=== PATIENT | male | born 1995 | race Caucasian/White ===

== ENCOUNTER 2016-12-29 02:20 | Emergency (ER) | payer OTHER ==
--- NOTE | 2016-12-29 03:27 | ED ORDER SUMMARY ---
..... Patient: NAZ SMITH OrderSheet [facility] VisitID: [id number] [address] [place] [address] 21y, M Registration Date/Time: 12/29/2016 ORDER SHEET Weight: 77.1 kg (stated) Allergies: No Known Drug Allergy GENERAL ORDERS: MEDICATION ORDERS: Bactrim DS PO (Tablet 800-160 mg) 2 tabs (NOW) (03:26 12/29/2016 Karolina GIBSON) (3:48 Fabricio R.N.) IV FLUIDS: ORDER SHEET NOTES: [Electronically signed by Jagdeep Christensen R.N. (03:50 12/29/2016)] [Electronically signed by Miguel Ángel Johnson MD (00:25 01/02/2017)] [Electronically locked/signed by Jagdeep Christensen R.N. (03:50 12/29/2016)]
--- NOTE | 2016-12-29 03:27 | ED ORDER SUMMARY ---
..... Patient: NAZ SMITH OrderSheet [facility] VisitID: [id number] [address] [place] [address] 21y, M Registration Date/Time: 12/29/2016 ORDER SHEET Weight: 77.1 kg (stated) Allergies: No Known Drug Allergy GENERAL ORDERS: MEDICATION ORDERS: Bactrim DS PO (Tablet 800-160 mg) 2 tabs (NOW) (03:26 12/29/2016 Karolina GIBSON) (3:48 Fabricio R.N.) IV FLUIDS: ORDER SHEET NOTES: [Electronically signed by Jagdeep Christensen R.N. (03:50 12/29/2016)] [Electronically signed by Miguel Ángel Johnson MD (00:25 01/02/2017)] [Electronically locked/signed by Jagdeep Christensen R.N. (03:50 12/29/2016)]
--- NOTE | 2016-12-29 03:27 | ED CLINICAL REPORT ---
Clinical Report - Physicians/Mid Levels [facility] [address] [place] [address] 12/29/2016 2:21 [id number] Time Seen: 02:30 Dec 29 2016. Arrived- By private vehicle. Historian- patient. HISTORY OF PRESENT ILLNESS Chief Complaint: SKIN RASH and BOIL. This started about 2 weeks ago and is still present. It is described as painful. It has been located on the buttocks. No cause has been identified. Similar symptoms previously: Recent medical care: Not recently seen/assessed. REVIEW OF SYSTEMS No fever, chills, sore throat, cough or difficulty breathing. No hoarseness, lump in throat, enlarged lymph nodes, abdominal pain or nausea. No diarrhea, difficulty with urination or joint pain. All systems otherwise negative, except as recorded above. PAST HISTORY Psychosis. Contusion. Abnormal Liver Function Test. Facial Cellulitis. Depression. Substance Abuse. Chest Wall Pain. Immunizations. Gastroesophageal Reflux Disease. Constipation. Chest Pain of GI Origin. Additional Surgeries: no known surgeries. Medications: Suboxone Sublingual. Allergies: No Known Drug Allergy. SOCIAL HISTORY Heavy tobacco smoker (cigarette)- less than 1 pack per day. History of drug use: methamphetamines. ADDITIONAL NOTES The nursing notes have been reviewed. PHYSICAL EXAM Vital Signs: 12/29/2016 02:26 BP: 134/87. HR: 82. RR: 18. O2 saturation: 94%. Temp: 98.7 F. Pain level now: 8/10. Appearance: Alert. Patient in mild distress. ENT: Pharynx normal. Neck: Neck supple. CVS: Normal heart rate and rhythm. Heart sounds normal. No cardiac murmur. Respiratory: No respiratory distress. Breath sounds normal. Chest nontender. Abdomen: Nontender. Skin: Skin warm. No rash. Multiple medium abscesses with pointing to the abdomen and right buttock. Extremities: Normal external inspection. Extremities nontender. Neuro: Oriented X 3. No motor deficit. No sensory deficit. PROGRESS AND PROCEDURES Course of Care: Pt refuses I&D and requests antibiotics only. Discussed possible worsening despite antibiotics. He says he will return if worse. Patient/family counseled. Disposition: Discharged. Condition: unchanged. CLINICAL IMPRESSION Multiple deep abscesses to the abdominal wall (left buttock). INSTRUCTIONS Apply moist heat for 15-20 minutes three times a day for one weeks until better. Warnings: Further evaluation is necessary. Your Current Medications: CONTINUE TAKING THE FOLLOWING MEDICATIONS: Suboxone Sublingual. Prescription Medications: Bactrim DS 800 mg / 160 mg: Take 1 tablet orally every 12 hours for 7 days. Dispense fourteen (14). No refills. Substitution is permissible. Follow-up: Follow up with your doctor in three days. Call for an appointment. Understanding of the discharge instructions verbalized by patient. (Electronically signed by Miguel Ángel Johnson MD 01/02/2017 0:25)
--- NOTE | 2016-12-29 03:27 | ED NURSING NOTES ---
Clinical Report - Nurses [facility] [address] [place] [address] 12/29/2016 2:21 [id number] Triage time 02:26. Acuity: LEVEL 4. Chief Complaint: (abscess to buttocks). No acute distress. GARRICK COMA SCORE: Garrick Coma Scale: 15- eyes open spontaneously (4); best verbal response- oriented x 4 (5); best motor response- obeys commands (6). --02:34 Jagdeep Christensen R.N. 02:26 12/29/16. BP: 134/87. HR: 82. RR: 18 (unlabored). O2 saturation: 94% on room air. Temp: 98.7 F. Pain level now: 810. --02:34 Jagdeep Christensen R.N. Weight: 77.1 kg stated. Height/Length: 71 inches Per Patient. BMI: 23.7. --02:26 Jagdeep Christensen R.N. Medications Suboxone Sublingual. --02:29 Jagdeep Christensen R.N. Allergies No Known Drug Allergy. --02:29 Jagdeep Christensen R.N. History Arrived by private vehicle. Historian: patient. ( pt states that abscess started a couple weeks ago). SOCIAL HX: Heavy tobacco smoker- 1 pack per day. Alcohol use. History of drug use: methamphetamines. --02:34 Jagdeep Christensen R.N. PROBLEMS: Psychosis. Contusion. Abnormal Liver Function Test. Facial Cellulitis. Depression. Substance Abuse. Chest Wall Pain. Immunizations. Gastroesophageal Reflux Disease. Constipation. --02:29 Jagdeep Christensen R.N. Chest Pain of GI Origin [RuleOut]. --02:29 Jagdeep Christensen R.N. ADDITIONAL SURGERIES: no known surgeries. Interventions ID band on patient. To treatment room. --02:34 Jagdeep Christensen R.N. PHYSICAL ASSESSMENT GENERAL / NEURO / PSYCH: Alert. Oriented X 4. HEENT: Mucous membranes are pink. RESPIRATORY: Respirations not labored. CVS: Capillary refill less than 2 seconds. GI / : Abdomen nontender. SKIN: Skin is warm and dry. --02:35 Jagdeep Christensen R.N. ( patient has a reddened area on left buttocks cheek, and small red areas on his stomach. he states that all of the red areas occured "two weeks ago."). --02:36 Jagdeep Christensen R.N. NURSING PROGRESS NOTES Patient gowned. Reassurance given. Patient ready for evaluation- chart flagged. Patient waiting for evaluation. --02:35 Jagdeep Christensen R.N. Two patient identifiers checked. Call light placed in reach. Side rails up x 1. Bed placed in lowest position. Brakes of bed on. --02:35 Jagdeep Christensen R.N. 03:48 12/29/2016 Bactrim DS (Sulfamethoxazole-TMP DS) PO Tablets 2 tab given. Allergies verified and confirmed 5 rights. --03:48 Jagdeep Christensen R.N. DISPOSITION / DISCHARGE Condition at departure: stable. No learning barriers present. Discharge instructions provided and reviewed. Reviewed warnings. Reviewed medication(s) side effects, precautions, dosing and course information. Prescription(s) given to the patient. Treatments reviewed. Reviewed referrals for followup. Patient verbalized understanding. Written instructions provided in Chilean. --03:49 Jagdeep Christensen R.N. 03:48 12/29/16. RR: 18. Additional comments: no change in pain since last assessment. --03:49 Jagdeep Christensen R.N. Locked/Released at 12/29/2016 3:50 by Jagdeep Christensen R.N.
--- NOTE | 2016-12-29 03:27 | ED NURSING NOTES ---
Clinical Report - Nurses Located Within [facility] [address] [place] [address] 12/29/2016 2:21 [id number] TRI[facility] Triage time 02:26. Acuity: LEVEL 4. Chief Complaint: (abscess to buttocks). No acute distress. GARRICK COMA SCORE: Garrick Coma Scale: 15- eyes open spontaneously (4); best verbal response- oriented x 4 (5); best motor response- obeys commands (6). --02:34 Jagdeep Christensen R.N. 02:26 12/29/16. BP: 134/87. HR: 82. RR: 18 (unlabored). O2 saturation: 94% on room air. Temp: 98.7 F. Pain level now: 810. --02:34 Jagdeep Christensen R.N. Weight: 77.1 kg stated. Height/Length: 71 inches Per Patient. BMI: 23.7. --02:26 Jagdeep Christensen R.N. Medications Suboxone Sublingual. --02:29 Jagdeep Christensen R.N. Allergies No Known Drug Allergy. --02:29 Jagdeep Christensen R.N. History Arrived by private vehicle. Historian: patient. ( pt states that abscess started a couple weeks ago). SOCIAL HX: Heavy tobacco smoker- 1 pack per day. Alcohol use. History of drug use: methamphetamines. --02:34 Jagdeep Christensen R.N. PROBLEMS: Psychosis. Contusion. Abnormal Liver Function Test. Facial Cellulitis. Depression. Substance Abuse. Chest Wall Pain. Immunizations. Gastroesophageal Reflux Disease. Constipation. --02:29 Jagdeep Christensen R.N. Chest Pain of GI Origin [RuleOut]. --02:29 Jagdeep Christensen R.N. ADDITIONAL SURGERIES: no known surgeries. Interventions ID band on patient. To treatment room. --02:34 Jagdeep Chrisetnsen R.N. PHYSICAL ASSESSMENT GENERAL / NEURO / PSYCH: Alert. Oriented X 4. HEENT: Mucous membranes are pink. RESPIRATORY: Respirations not labored. CVS: Capillary refill less than 2 seconds. GI / : Abdomen nontender. SKIN: Skin is warm and dry. --02:35 Jagdeep Christensen R.N. ( patient has a reddened area on left buttocks cheek, and small red areas on his stomach. he states that all of the red areas occured "two weeks ago."). --02:36 Jagdeep Christensen R.N. NURSING PROGRESS NOTES Patient gowned. Reassurance given. Patient ready for evaluation- chart flagged. Patient waiting for evaluation. --02:35 Jagdeep Christensen R.N. Two patient identifiers checked. Call light placed in reach. Side rails up x 1. Bed placed in lowest position. Brakes of bed on. --02:35 Jagdeep Christensen R.N. 03:48 12/29/2016 Bactrim DS (Sulfamethoxazole-TMP DS) PO Tablets 2 tab given. Allergies verified and confirmed 5 rights. --03:48 Jagdeep Christensen R.N. DISPOSITION / DISCHARGE Condition at departure: stable. No learning barriers present. Discharge instructions provided and reviewed. Reviewed warnings. Reviewed medication(s) side effects, precautions, dosing and course information. Prescription(s) given to the patient. Treatments reviewed. Reviewed referrals for followup. Patient verbalized understanding. Written instructions provided in Mongolian. --03:49 Jagdeep Christensen R.N. 03:48 12/29/16. RR: 18. Additional comments: no change in pain since last assessment. --03:49 Jagdeep Christensen R.N. Locked/Released at 12/29/2016 3:50 by Jagdeep Christensen R.N.
--- NOTE | 2016-12-29 03:27 | ED CLINICAL REPORT ---
Clinical Report - Physicians/Mid Levels [facility] [address] [place] [address] 12/29/2016 2:21 [id number] Time Seen: 02:30 Dec 29 2016. Arrived- By private vehicle. Historian- patient. HISTORY OF PRESENT ILLNESS Chief Complaint: SKIN RASH and BOIL. This started about 2 weeks ago and is still present. It is described as painful. It has been located on the buttocks. No cause has been identified. Similar symptoms previously: Recent medical care: Not recently seen/assessed. REVIEW OF SYSTEMS No fever, chills, sore throat, cough or difficulty breathing. No hoarseness, lump in throat, enlarged lymph nodes, abdominal pain or nausea. No diarrhea, difficulty with urination or joint pain. All systems otherwise negative, except as recorded above. PAST HISTORY Psychosis. Contusion. Abnormal Liver Function Test. Facial Cellulitis. Depression. Substance Abuse. Chest Wall Pain. Immunizations. Gastroesophageal Reflux Disease. Constipation. Chest Pain of GI Origin. Additional Surgeries: no known surgeries. Medications: Suboxone Sublingual. Allergies: No Known Drug Allergy. SOCIAL HISTORY Heavy tobacco smoker (cigarette)- less than 1 pack per day. History of drug use: methamphetamines. ADDITIONAL NOTES The nursing notes have been reviewed. PHYSICAL EXAM Vital Signs: 12/29/2016 02:26 BP: 134/87. HR: 82. RR: 18. O2 saturation: 94%. Temp: 98.7 F. Pain level now: 8/10. Appearance: Alert. Patient in mild distress. ENT: Pharynx normal. Neck: Neck supple. CVS: Normal heart rate and rhythm. Heart sounds normal. No cardiac murmur. Respiratory: No respiratory distress. Breath sounds normal. Chest nontender. Abdomen: Nontender. Skin: Skin warm. No rash. Multiple medium abscesses with pointing to the abdomen and right buttock. Extremities: Normal external inspection. Extremities nontender. Neuro: Oriented X 3. No motor deficit. No sensory deficit. PROGRESS AND PROCEDURES Course of Care: Pt refuses I&D and requests antibiotics only. Discussed possible worsening despite antibiotics. He says he will return if worse. Patient/family counseled. Disposition: Discharged. Condition: unchanged. CLINICAL IMPRESSION Multiple deep abscesses to the abdominal wall (left buttock). INSTRUCTIONS Apply moist heat for 15-20 minutes three times a day for one weeks until better. Warnings: Further evaluation is necessary. Your Current Medications: CONTINUE TAKING THE FOLLOWING MEDICATIONS: Suboxone Sublingual. Prescription Medications: Bactrim DS 800 mg / 160 mg: Take 1 tablet orally every 12 hours for 7 days. Dispense fourteen (14). No refills. Substitution is permissible. Follow-up: Follow up with your doctor in three days. Call for an appointment. Understanding of the discharge instructions verbalized by patient. (Electronically signed by Miguel Ángel Johnson MD 01/02/2017 0:25)
--- NOTE | 2017-01-02 00:25 | ED MAR SUMMARY ---
..... Medication Administration Record [facility] [address] [place] [address] Patient: NAZ SMITH Visit ID: [id number] 21y, M Weight: 77.1 kg Height/Length: 71 in BMI: 23.7 ALLERGIES: No Known Drug Allergy Given 03:48 12/29/2016 Jagdeep Christensen R.N. Medication Administered: BACTRIM DS [PO] (SULFAMETHOXAZOLE-TMP DS), Dose: 2 tab Tablets PO. Medication Ordered: Bactrim DS PO (Tablet 800-160 mg) 2 tabs (NOW).
--- NOTE | 2017-01-02 00:25 | ED DISCHARGE INSTRUCTIONS ---
Patient: NAZ SMITH General Instructions [facility] VisitID: [id number] [place] [address] 21y, M Registration Date/Time: 12/29/2016 Multiple deep abscesses to the abdominal wall (left buttock). INSTRUCTIONS Apply moist heat for 15-20 minutes three times a day for one weeks until better. Warnings: Further evaluation is necessary. Your Current Medications: CONTINUE TAKING THE FOLLOWING MEDICATIONS: Suboxone Sublingual. Prescription Medications: Bactrim DS 800 mg / 160 mg: Take 1 tablet orally every 12 hours for 7 days. Dispense fourteen (14). No refills. Substitution is permissible. Follow-up: Follow up with your doctor in three days. Call for an appointment. Understanding of the discharge instructions verbalized by patient. (Electronically signed by Miguel Ángel Johnson MD 01/02/2017 0:25)
--- NOTE | 2017-01-02 00:25 | ED MED RECONCILIATION SUMMARY ---
Patient: NAZ SMITH Medication Reconciliation Report [facility] VisitID: [id number] [place] [address] 21y, M Registration Date/Time: 12/29/2016 Weight: 77.1 kg Height/Length: 71 in. BMI: 23.7 ALLERGIES: No Known Drug Allergy The patient's Home Medications are listed below: CONTINUE TAKING THE FOLLOWING MEDICATIONS: Suboxone Sublingual The source(s) of the original Home Medication information: Not obtained. The following Medications were given to the patient in the Emergency Department: Bactrim DS [PO] PO 2 tab, administered: 12/29/2016 3:48:00 AM The following Medications were prescribed to the patient: Bactrim DS 800 mg / 160 mg: Take 1 tablet orally every 12 hours for 7 days. Dispense fourteen (14). No refills. Substitution is permissible. -- Miguel Ángel Johnson MD
--- NOTE | 2017-01-02 00:25 | ED DISCHARGE INSTRUCTIONS ---
Patient: NAZ SMITH General Instructions [facility] VisitID: [id number] [place] [address] 21y, M Registration Date/Time: 12/29/2016 Multiple deep abscesses to the abdominal wall (left buttock). INSTRUCTIONS Apply moist heat for 15-20 minutes three times a day for one weeks until better. Warnings: Further evaluation is necessary. Your Current Medications: CONTINUE TAKING THE FOLLOWING MEDICATIONS: Suboxone Sublingual. Prescription Medications: Bactrim DS 800 mg / 160 mg: Take 1 tablet orally every 12 hours for 7 days. Dispense fourteen (14). No refills. Substitution is permissible. Follow-up: Follow up with your doctor in three days. Call for an appointment. Understanding of the discharge instructions verbalized by patient. (Electronically signed by Miguel Ángel Johnson MD 01/02/2017 0:25)
--- NOTE | 2017-01-02 00:25 | ED MAR SUMMARY ---
..... Medication Administration Record [facility] [address] [place] [address] Patient: NAZ SMITH Visit ID: [id number] 21y, M Weight: 77.1 kg Height/Length: 71 in BMI: 23.7 ALLERGIES: No Known Drug Allergy Given 03:48 12/29/2016 Jagdeep Christensen R.N. Medication Administered: BACTRIM DS [PO] (SULFAMETHOXAZOLE-TMP DS), Dose: 2 tab Tablets PO. Medication Ordered: Bactrim DS PO (Tablet 800-160 mg) 2 tabs (NOW).
--- NOTE | 2017-01-02 00:25 | ED MED RECONCILIATION SUMMARY ---
Patient: NAZ SMITH Medication Reconciliation Report [facility] VisitID: [id number] [place] [address] 21y, M Registration Date/Time: 12/29/2016 Weight: 77.1 kg Height/Length: 71 in. BMI: 23.7 ALLERGIES: No Known Drug Allergy The patient's Home Medications are listed below: CONTINUE TAKING THE FOLLOWING MEDICATIONS: Suboxone Sublingual The source(s) of the original Home Medication information: Not obtained. The following Medications were given to the patient in the Emergency Department: Bactrim DS [PO] PO 2 tab, administered: 12/29/2016 3:48:00 AM The following Medications were prescribed to the patient: Bactrim DS 800 mg / 160 mg: Take 1 tablet orally every 12 hours for 7 days. Dispense fourteen (14). No refills. Substitution is permissible. -- Miguel Ángel Johnson MD
== END 2016-12-29 03:46 | disposition home or self-care (01) ==
LOC: ED SRH 02:20
DX: L02.211 Cutaneous abscess of abdominal wall (principal); L02.31 Cutaneous abscess of buttock; F17.210 Nicotine dependence, cigarettes, uncomplicated